=== PATIENT | male | born 1940 | race Caucasian/White ===

== ENCOUNTER 2021-03-09 16:04 | Emergency (ER) | payer MEDICARE, SELFPAY ==
[2021-03-09 16:20] VITALS: BP 156/77; PULSE 70; RESP 16; TEMP 37.1; O2SAT 100
--- NOTE | 2021-03-09 16:21 | ED.SKABFB ---
HPI - Skin/Abscess/Foreign Bdy General Chief complaint: Skin/Abscess/Foreign Body Stated complaint: Dog Bite Time Seen by Provider: 03/09/21 16:21 History of Present Illness HPI narrative: patient presents with a skin tear to the top of his hand. patient states they were playing with a chew toy and he got scratched. Related Data Home Medications Medication Instructions Recorded Confirmed albuterol 1 mcg INHALATION DIRECTED 03/09/21 03/09/21 amlodipine [Norvasc] 10 mg PO DAILY 03/09/21 03/09/21 bupropion HCl [Wellbutrin SR] 100 mg PO DAILY 03/09/21 03/09/21 clopidogrel [Plavix] 75 mg PO DAILY 03/09/21 03/09/21 famotidine [Pepcid] 20 mg PO BID 03/09/21 03/09/21 finasteride 5 mg PO DAILY 03/09/21 03/09/21 fluticasone propionate [Flonase] 1 spray INTRANASAL BID 03/09/21 03/09/21 lorazepam 0.5 mg PO BID 03/09/21 03/09/21 losartan 50 mg PO DAILY 03/09/21 03/09/21 mirtazapine [Remeron] 15 mg PO DAILY 03/09/21 03/09/21 pravastatin [Pravachol] 40 mg PO DAILY 03/09/21 03/09/21 sodium bicarbonate 650 mg PO TID 03/09/21 03/09/21 tamsulosin 0.4 mg PO DAILY 03/09/21 03/09/21 zolpidem [Ambien] 1 mg PO HS 03/09/21 03/09/21 Allergies Allergy/AdvReac Type Severity Reaction Status Date / Time No Known Allergies Allergy Verified 03/09/21 16:40 Review of Systems Review of Systems: CONSTITUTIONAL: Denies fever, chills, or sweats. EYES: Denies visual changes, redness, or discharge. ENT: Denies rhinorrhea, congestion, sore throat, or otalgia. CARDIOVASCULAR: Denies chest pain, palpitations, or edema. RESPIRATORY: Denies cough or dyspnea. GASTROINTESTINAL: Denies abdominal pain, nausea, vomiting, or diarrhea. GENITOURINARY: Denies dysuria or hematuria. SKIN: Denies rash or itching. skin tear to top of right hand MUSCULOSKELETAL: Denies back pain, joint pain, or myalgia. NEUROLOGIC: Denies headache, numbness, or weakness. PSYCHIATRIC: Denies anxiety or depression. PMFSH Comments At time of signature, agree with nursing past medical, surgical, social and family history. There is no relevant family history pertinent to the presenting complaint Exam Narrative: GENERAL: Well-appearing, well-nourished, and in no acute distress. HEAD: Normocephalic, atraumatic. EYES: PERRLA and EOMI. ENT: Nares clear, no rhinorrhea or epistaxis. Mucous membranes moist. NECK: Supple. CHEST: Clear to auscultation. No respiratory distress. HEART: Regular rate and rhythm. No murmur heard. Normal peripheral pulses. ABDOMEN: Soft, nontender, nondistended, normal active bowel sounds. EXTREMITIES: Normal range of motion. No edema. SKIN: Warm, dry, no rash. 1.5 cm skin tear to top of right hand. NEURO: No focal deficits. Alert and oriented x3. Ruby Coma Scale Eye Opening: Spontaneous 4 Ruby Coma Scale Motor: Obeys Commands 6 [place] Coma Scale Verbal: Oriented 5 Ruby Coma Scale Total 15 Procedures Laceration top of right hand: Date: 03/09/21 Time: 16:28 Site: hand (right hand ) Side (If applicable): right Size (cm): 1.5 Depth: simple, single layer Pre-repair: irrigated extensively ====== Skin Level ====== Skin layer closed with: steri strips ====== Subcutaneous Layer ====== ====== Muscle Layer ====== ====== Tendon Layer ====== Dressing: dry sterile dressing MDM - Skin/Abscess/Foreign Bdy Differential Diagnosis Differential diagnosis: Likely abscess of skin or subcutaneous tissue, viral exanthem, dermatophytosis, urticaria, herpes zoster, allergic reaction to drug, cellulitis, eczema, insect bites, impetigo, contact dermatitis and other (skin tear) Critical Care Time Critical Care Time Critical Care Time: No Discharge Plan Discharge Clinical Impression: Skin tear of right hand without complication Patient Disposition: Home, Self-Care Condition: Stable Instructions: Antibiotic Form, Animal Bite (ED), Skin Tear (ED) Additional Instructions: keep
[2021-03-09] MEDS: TETANUS,DIPHTHERIA,AC PERTUSSIS ADULT (0.5 ML) BOOSTRIX IM (16:37)
== END 2021-03-09 16:50 | disposition home or self-care (01) ==
PROVIDERS: Emergency Provider Nurse Practitioner Family
DX: S61.411A Laceration without foreign body of right hand, initial encounter (principal); W54.0XXA Bitten by dog, initial encounter; Z23 Encounter for immunization; E78.00 Pure hypercholesterolemia, unspecified; I10 Essential (primary) hypertension; Z86.73 Personal history of transient ischemic attack (TIA), and cerebral infarction without residual deficits
CPT/HCPCS: 90471; 90715; 99213; G0463